=== PATIENT | female | born 1975 | race African-American/Black ===

== ENCOUNTER 2016-11-22 08:19 | Inpatient (IN) | payer OTHER ==
[2016-11-22 08:59] VITALS: BMI 35.4
--- NOTE | 2016-11-22 10:40 | HP ---
COWS - Scale Resting Pulse: 0= [place] 80 or Below Sweatin=Flushed/Facial Moisture Restless Observation: 1= Difficult to Sit Still Pupil Size: 0= Normal to Room Light Bone or Joint Aches: 1= Mild Discomfort Runny Nose/ Eye Tearin= Runny Nose/Eyes GI Upset > 30mins: 0= None Tremor Observation: 2= Slight Tremor Visible Yawning Observation: 1= 1-2x During Session Anxiety or Irritability: 2=Irritable/Anxious Goose Flesh Skin: 0=Smooth Skin COWS Score: 11 CIWA Score - CIWA Score Nausea/Vomitin-No Nausea/No Vomiting Muscle Tremors: 3 Anxiety: 3 Agitation: 3 Paroxysmal Sweats: 3 Orientation: 0-Oriented Tacttile Disturbances: 0-None Auditory Disturbances: 0-None Visual Disturbances: 0-None Headache: 2-Mild CIWA-Ar Total Score: 14 Admission [facility] Chief Complaint: I need to be here for help. Allergies/Adverse Reactions: Allergies Allergy/AdvReac Type Severity Reaction Status Date / Time quetiapine fumarate Allergy Intermediate Hives Verified 11/22/16 10:27 [From Seroquel] haloperidol AdvReac Intermediate Difficulty Verified 11/22/16 10:27 Breathing History of Present Illness: Pt is a 41yr old female with a history of alcohol and opioid dependence seeking detox for treatment. Last tx was at [facility] a year ago. Exam Limitations: No Limitations - Ebola screening Have you traveled outside of the country in the last 21 days: No Have you had contact with anyone from an Ebola affected area: No Have you been sick,other than usual withdrawal symptoms: No Do you have a fever: No - Review of Systems Constitutional: Chills, Diaphoresis, Loss of Appetite, Changes in sleep EENT: reports: No Symptoms Reported, Tearing Respiratory: reports: Cough, Productive cough (yellowish) Cardiac: reports: No Symptoms Reported GI: reports: Poor Appetite, Poor Fluid Intake, Indigestion : reports: Other (diffulty with voiding at times) Musculoskeletal: reports: Joint Pain Integumentary: reports: Flushing, Lesions (to left arm d/t mosquito bite and she was scratching causing her skin to open. no s/s of infection), Sweating Neuro: reports: Headache, Tingling, Tremors Endocrine: reports: Excessive Sweating, Flushing, Intolerance to Cold, Intolerance to Heat Hematology: reports: No Symptoms Reported Psychiatric: reports: Judgement Intact, Orientated x3, Agitated, Anxious Other Systems: Reviewed and Negative Patient History - Patient Medical History Hx Anemia: No Hx Asthma: No Hx Chronic Obstructive Pulmonary Disease (COPD): No Hx Cancer: No Hx Cardiac Disorders: Yes (cardiac arrest in 2011.) Hx Congestive Heart Failure: No Hx Hypertension: No Hx Hypercholesterolemia: No Hx Pacemaker: No HX Cerebrovascular Accident: No Hx Seizures: No Hx Dementia: No Hx Diabetes: No Hx Gastrointestinal Disorders: No Hx Liver Disease: No Hx Genitourinary Disorders: No Hx Sexually Transmitted Disorders: No Hx Renal Disease (ESRD): No Hx Thyroid Disease: No Hx Human Immunodeficiency Virus (HIV): No (negative) Hx Hepatitis C: No (negative) Hx Depression: No Hx Suicide Attempt: No (denies) Hx Bipolar Disorder: Yes ("they say I am") Hx Schizophrenia: No - Patient Surgical History Past Surgical History: Yes Hx Neurologic Surgery: No Hx Cataract Extraction: No Hx Cardiac Surgery: No Hx Lung Surgery: No Hx Breast Surgery: No Hx Breast Biopsy: No Hx Abdominal Surgery: No Hx Appendectomy: No Hx Cholecystectomy: No Hx Genitourinary Surgery: No Hx Section: No Hx Orthopedic Surgery: Yes (arthroscopic sx left 07/2016) Hx Hysterectomy: Yes Anesthesia Reaction: No - PPD History Previous Implant?: Yes Documented Results: Negative w/o proof PPD to be Administered?: Yes - Reproductive History Patient is a Female of Child Bearing Age (11 -55 yrs old): No Last Menstrual Period: 08/12/07 - Smoking Cessation Smoking history: Current every day smoker Have you smoked in the past 12 months: Yes Aproximately how many cigarettes per day: 10 Hx Chewing Tobacco Use: No Initiated information on smoking cessation: Yes 'Breaking Loose' booklet given: 11/22/16 - Substance & Tx. History Hx Alcohol Use: Yes Hx Substance Use: Yes Substance Use Type: Alcohol, Heroin - Substances Abused Heroin Route: Inhalation Frequency: Daily Amount used: 6 Age of first use: 35 Date of Last Use: 11/20/16 Family Disease History - Family Disease History Family Disease History: Heart Disease: Mother (lupus), Other: Father ( stroke), Mother, Sister (lupus) Admission Physical Exam BHS - Vital Signs Vital Signs: Vital Signs - 24 hr 11/22/16 08:52 Temperature 97.2 F L Pulse Rate 70 Respiratory 19 Rate Blood Pressure 131/93 - Physical General Appearance: Yes: Appropriately Dressed, Moderate Distress, Obese, Tremorous, Irritable, Sweating, Anxious HEENTM: Yes: Normal Voice, Nasal Congestion, Rhinorrhea Respiratory: Yes: Lungs Clear, Normal Breath Sounds, No Respiratory Distress Neck: Yes: No masses,lesions,Nodules Breast: Yes: Within Normal Limits Cardiology: Yes: Regular Rhythm, Regular Rate, S1, S2 Abdominal: Yes: Normal Bowel Sounds, Non Tender, Soft Genitourinary: Yes: Within Normal Limits Back: Yes: Normal Inspection Musculoskeletal: Yes: full range of Motion Extremities: Yes: Normal Inspection, Non-Tender, Tremors Neurological: Yes: Fully Oriented, Alert, Normal Response Integumentary: Yes: Normal Color Lymphatic: Yes: Within Normal Limits - Diagnostic (1) Opioid dependence with withdrawal Current Visit: Yes Status: Chronic (2) Alcohol dependence with uncomplicated withdrawal Current Visit: Yes Status: Chronic (3) Cannabis abuse Current Visit: Yes Status: Chronic (4) Nicotine dependence Current Visit: Yes Status: Chronic Qualifiers: Nicotine product type: cigarettes Substance use status: uncomplicated Qualified Code(s): F17.210 - Nicotine dependence, cigarettes, uncomplicated Cleared for Admission [facility] - Detox or Rehab [facility] Level of Care: Medically Managed Detox Regimen/Protocol: Methadone/Librium [facility] Breath Alcohol Content Breath Alcohol Content: 0 Urine Pregancy Test - Result Urine Test Results: Negative- NO Line Present Urine Drug Screen - Results Drug Screen Negative: No Urine Drug Screen Results: THC-Marijuana, CLAUS-Cocaine, OPI-Opiates, MTD- Methadone
[2016-11-22] MEDS ORDERED: MAGNESIUM CITRATE 300 ML BOTTLE PO PRN (11:03)
[2016-11-22] MEDS ORDERED: guaiFENesin/D-METHORPHAN HB 10 ML UNIT-DOSE CUPS PO PRN (11:03)
[2016-11-22] MEDS ORDERED: MENTHOL/PHENOL 1 EACH UD MM PRN (11:03)
[2016-11-22] MEDS ORDERED: MAGNESIUM HYDROX 2400MG/30ML ORAL SUSPENSION 30 ML CUP PO PRN (11:03)
[2016-11-22] MEDS ORDERED: ACETAMINOPHEN 325 MG TABLET (FP) PO PRN (11:03)
[2016-11-22] MEDS ORDERED: IBUPROFEN 400 MG TABLET (FP) PO PRN (11:03)
[2016-11-22] MEDS ORDERED: P-EPHED 60MG/TRIPROLIDI 2.5MG TABLET PO PRN (11:03)
[2016-11-22] MEDS ORDERED: LOPERAMIDE HCL 2 MG CAPSULE PO PRN (11:03)
[2016-11-22] MEDS ORDERED: NICOTINE POLACRILEX 4 MG GUM BC PRN (11:03)
[2016-11-22] MEDS ORDERED: chlordiazePOXIDE HCL 25 MG CAPSULE PO ONE (12:15)
[2016-11-22] MEDS ORDERED: METHADONE HCL 10 MG TABLET (FOR DETOX USE ONLY) PO ONE ×2 (12:15→23:00)
[2016-11-22] MEDS ORDERED: NICOTINE 21 MG/24 HOURS TOPICAL PATCH TD ONE (13:00)
[2016-11-22 14:38] LABS: URINE APPEARANCE SLCLOUDY; URINE BILIRUBIN NEGATIVE (NEGATIVE); URINE BLOOD NEGATIVE (NEGATIVE); URINE COLOR AMBER; URINE GLUCOSE (UA) NEGATIVE (NEGATIVE); URINE KETONE TRACE (NEGATIVE); URINE NITRITE NEGATIVE (NEGATIVE); URINE UROBILINOGEN NEGATIVE mg/dL (0.2-1.0)
--- NOTE | 2016-11-22 14:46 | CONSULT ---
[facility] Psychiatric Consult - Data Date of interview: 11/22/16 Admission source: [facility] Identifying data: This is 41 years old female with hisotry of Bipolar disordewr , history of psychiatric admissions, intoxicated with: Alcohol, Xanax, Cannabis and Nicotine Substance Abuse History: - Smoking Cessation. Smoking history: Current every day smoker. Have you smoked in the past 12 months: Yes. Aproximately how many cigarettes per day: 10. Hx Chewing Tobacco Use: No. Initiated information on smoking cessation: Yes. 'Breaking Loose' booklet given: 11/22/16. - Substance & Tx. History. Hx Alcohol Use: Yes. Hx Substance Use: Yes. Substance Use Type : Alcohol, Heroin. - Substances Abused. Heroin. Route: Inhalation. Frequency: Daily. Amount used: 6. Age of first use: 35. Date of Last Use: 03/29 Medical History: Patient reports history of Hysterectomy, denies any significant medical problem, reports allergy from Haldol, Seroquel Depakote and [place] Psychiatric History: Patient reports history of Bipolar disorder, reports most recent psychiatric admission on about 2-3 years ago at [facility], reports allergy on: Haldol, Sertoquel, [place], [place] Physical/Sexual Abuse/Trauma History: Unclear Additional Comment: Obsewrvation. Detox Unit Care Protocol Mental Status Exam - Mental Status Exam Alert and Oriented to: Person Cognitive Function: Fair Patient Appearance: Unkempt Mood: Suspicious, Anxious Affect: Constricted Patient Behavior: Talkative Speech Pattern: Excessive Voice Loudness: Mildly Loud Thought Process: Circumstantial Thought Disorder: Being Controlled Hallucinations: Denies Suicidal Ideation: Denies Homicidal Ideation: Denies Insight/Judgement: Fair Sleep: Difficulty falling asleep Appetite: Weight gain Muscle strength/Tone: Mild Hypotonicity Gait/Station: Shuffling Additional Comments: Obsewrvation. Detox Unit Care Protocol Psychiatric Findings - Problem List ([place] 1, 2,3) (1) Alcohol dependence with uncomplicated withdrawal Current Visit: Yes Status: Chronic (2) Cannabis abuse Current Visit: Yes Status: Chronic (3) Nicotine dependence Current Visit: Yes Status: Chronic Qualifiers: Nicotine product type: cigarettes Substance use status: uncomplicated Qualified Code(s): F17.210 - Nicotine dependence, cigarettes, uncomplicated (4) Opioid dependence with withdrawal Current Visit: Yes Status: Chronic (5) Bipolar 1 disorder Current Visit: Yes Status: Suspected (6) Drug-induced mood disorder Current Visit: Yes Status: Acute - Initial Treatment Plan Initial Treatment Plan: Obsewrvation. Detox Unit Care Protocol
[2016-11-22 14:51] LABS: URINE LEUK ESTERASE 1+ (NEGATIVE); URINE PROTEIN 1+ (NEGATIVE)
[2016-11-22 14:54] LABS: URINE MUCUS FEW; URINE RBC 11 /hpf (0-3); URINE WBC 4 /hpf (3-5)
[2016-11-22 15:40] LABS: HIV 1 & 2 AB NEGATIVE; HIV 1 AGp24 NEGATIVE
--- NOTE | 2016-11-22 16:06 | EKG ---
Test Reason : Blood Pressure : / mmHG Vent. Rate : 056 BPM Atrial Rate : 056 BPM P-R Int : 164 ms QRS Dur : 108 ms QT Int : 426 ms P-R-T Axes : 054 016 027 degrees QTc Int : 411 ms SINUS BRADYCARDIA CANNOT RULE OUT ANTERIOR INFARCT , AGE UNDETERMINED ABNORMAL ECG NO PREVIOUS ECGS AVAILABLE Confirmed by EMELIA LEACH MD ([id number]) on 11/22/2016 4:06:26 PM Referred By: Confirmed By:EMELIA LEACH MD
[2016-11-22] MEDS: chlordiazePOXIDE HCL 25 MG CAPSULE PO SCH ×2 (17:05→22:19)
[2016-11-22] MEDS: THIAMINE HCL 100 MG TABLET (FP) PO SCH (22:19)
[2016-11-22] MEDS: diphenhydrAMINE HCL 50 MG CAPSULE PO PRN (22:20)
[2016-11-23] MEDS: chlordiazePOXIDE HCL 25 MG CAPSULE PO SCH ×4 (05:54→22:01)
[2016-11-23] MEDS ORDERED: METHADONE HCL 10 MG TABLET (FOR DETOX USE ONLY) PO SCH (10:00)
[2016-11-23 10:02] LABS: MCHC 33.6 g/dl (32.0-36.0); MEAN CELL VOLUME 92.2 fl (80-96); MEAN PLT VOLUME 9.3 fl (7.5-11.1); PLATELET COUNT 235 K/MM3 (134-434); RDW 14.4 % (11.6-15.6); WHITE BLOOD COUNT 5.2 K/mm3 (4.0-10.0)
[2016-11-23 10:14] LABS: ALBUMIN 4.3 g/dl (3.4-5.0); ANION GAP 6 (8-16); CALCIUM 9.9 mg/dL (8.5-10.1); CO2 29 mmol/L (21-32); GLUCOSE,RANDOM 81 mg/dL (74-106)
[2016-11-23 10:17] LABS: ALK PHOS 107 U/L (45-117); BILIRUBIN,TOTAL 0.6 mg/dL (0.2-1.0); CREATININE 1.2 mg/dL (0.55-1.02); SGOT/AST 23 U/L (15-37); SGPT/ALT 24 U/L (12-78); TOT PROT 8.2 g/dl (6.4-8.2)
--- NOTE | 2016-11-23 10:25 | PN ---
[facility] CIWA - CIWA Score Nausea/Vomitin-No Nausea/No Vomiting Muscle Tremors: 4-Moderate,w/Arms Extend Anxiety: 4-Mod. Anxious/Guarded Agitation: 4-Moderately Restless Paroxysmal Sweats: 1-Minimal Palms Moist Orientation: 0-Oriented Tacttile Disturbances: 3-Moderate Itch/Numb/Burn Auditory Disturbances: 0-None Visual Disturbances: 0-None Headache: 0-None Present CIWA-Ar Total Score: 16 S COWS - Scale Resting Pulse: 0= [place] 80 or Below Sweatin= Chills/Flushing Restless Observation: 3= Extraneous Movement Pupil Size: 2= Moderately Dilated Bone or Joint Aches: 2= Severe Diffuse Aches Runny Nose/ Eye Tearin= Nasal Congestion GI Upset > 30mins: 0= None Tremor Observation of Outstretched Hands: 2= Slight Tremor Visible Yawning Observation: 1= 1-2x During Session Anxiety or Irritability: 2=Irritable/Anxious Goose Flesh Skin: 0=Smooth Skin COWS Score: 14 S Progress Note (SOAP) Subjective: SLIGHT IRRITABILITY,TREMOR,FATIGUE. Objective: 11/23/16 10:24 Vital Signs Temperature 98.1 F 11/23/16 06:22 Pulse Rate 58 L 11/23/16 06:22 Respiratory Rate 16 11/23/16 06:22 Blood Pressure 101/54 11/23/16 06:22 O2 Sat by Pulse Oximetry (%) Laboratory Last Values WBC 5.2 K/mm3 (4.0-10.0) 11/23/16 06:00 RBC 5.01 M/mm3 (3.60-5.2) 11/23/16 06:00 Hgb 15.5 GM/dL (10.7-15.3) H D 11/23/16 06:00 Hct 46.2 % (32.4-45.2) H 11/23/16 06:00 MCV 92.2 fl (80-96) 11/23/16 06:00 MCH 31.0 pg (25.7-33.7) 11/23/16 06:00 MCHC 33.6 g/dl (32.0-36.0) 11/23/16 06:00 RDW 14.4 % (11.6-15.6) 11/23/16 06:00 Plt Count 235 K/MM3 (134-434) D 11/23/16 06:00 MPV 9.3 fl (7.5-11.1) D 11/23/16 06:00 Urine Color [place] 11/22/16 12:53 Urine Appearance Slcloudy 11/22/16 12:53 Urine pH 5.0 (5.0-8.0) 11/22/16 12:53 Ur Specific [place] > 1.030 (1.005-1.025) H 11/22/16 12:53 Urine Protein 1+ (NEGATIVE) H 11/22/16 12:53 Urine Glucose (UA) Negative (NEGATIVE) 11/22/16 12:53 Urine Ketones Trace (NEGATIVE) H 11/22/16 12:53 Urine Blood Negative (NEGATIVE) 11/22/16 12:53 Urine Nitrite Negative (NEGATIVE) 11/22/16 12:53 Urine Bilirubin Negative (NEGATIVE) 11/22/16 12:53 Urine Urobilinogen Negative mg/dL (0.2-1.0) 11/22/16 12:53 Ur Leukocyte Esterase 1+ (NEGATIVE) H 11/22/16 12:53 Urine RBC 11 /hpf (0-3) 11/22/16 12:53 Urine WBC 4 /hpf (3-5) 11/22/16 12:53 Ur Epithelial Cells Many /hpf (FEW) 11/22/16 12:53 Urine Mucus Few 11/22/16 12:53 HIV 1&2 Antibody Screen Negative 11/22/16 11:40 HIV P24 Antigen Negative 11/22/16 11:40 LABS NOTED/UA NOTED Assessment: 11/23/16 10:25 WITHDRAWAL SX Plan: CONTINUE DETOX REPEAT UA TODAY.
[2016-11-23] MEDS: PRENATAL VITAMINS W/ FOLIC ACID TABLET (FP) PO SCH (10:41)
[2016-11-23] MEDS: NICOTINE 21 MG/24 HOURS TOPICAL PATCH TD SCH (10:43)
[2016-11-23] MEDS: chlordiazePOXIDE HCL 25 MG CAPSULE PO PRN (20:07)
[2016-11-23] MEDS: MAG HYDROX/AL HYDROX/SIMETH 30 ML UNIT-DOSE CUP PO PRN (21:51)
[2016-11-23] MEDS: THIAMINE HCL 100 MG TABLET (FP) PO SCH (21:51)
[2016-11-23] MEDS: diphenhydrAMINE HCL 50 MG CAPSULE PO PRN (21:52)
[2016-11-24] MEDS: chlordiazePOXIDE HCL 25 MG CAPSULE PO PRN ×3 (01:59→20:23)
[2016-11-24] MEDS: chlordiazePOXIDE HCL 25 MG CAPSULE PO SCH ×2 (05:53→10:03)
[2016-11-24] MEDS: NICOTINE 21 MG/24 HOURS TOPICAL PATCH TD SCH (10:03)
[2016-11-24] MEDS: PRENATAL VITAMINS W/ FOLIC ACID TABLET (FP) PO SCH (10:03)
[2016-11-24] MEDS: METHADONE HCL 5 MG TABLET (FOR DETOX USE ONLY) PO SCH (10:03)
[2016-11-24 10:28] LABS: URINE APPEARANCE SLCLOUDY; URINE BILIRUBIN NEGATIVE (NEGATIVE); URINE BLOOD NEGATIVE (NEGATIVE); URINE COLOR YELLOW; URINE GLUCOSE (UA) NEGATIVE (NEGATIVE); URINE KETONE NEGATIVE (NEGATIVE); URINE NITRITE NEGATIVE (NEGATIVE); URINE PROTEIN NEGATIVE (NEGATIVE)
[2016-11-24 10:47] LABS: URINE LEUK ESTERASE 1+ (NEGATIVE)
[2016-11-24 11:11] LABS: URINE MUCUS RARE; URINE RBC 3 /hpf (0-3); URINE WBC 3 /hpf (3-5)
--- NOTE | 2016-11-24 15:15 | PN ---
S CIWA - CIWA Score Nausea/Vomitin Muscle Tremors: 2 Anxiety: 2 Agitation: 2 Paroxysmal Sweats: 2 Orientation: 0-Oriented Tacttile Disturbances: 2-Mild Itch/Numbness/Burn Auditory Disturbances: 0-None Visual Disturbances: 0-None Headache: 2-Mild CIWA-Ar Total Score: 14 BHS COWS - Scale Resting Pulse: 0= [place] 80 or Below Sweatin= Chills/Flushing Restless Observation: 1= Difficult to Sit Still Pupil Size: 0= Normal to Room Light Bone or Joint Aches: 2= Severe Diffuse Aches Runny Nose/ Eye Tearin= Nasal Congestion GI Upset > 30mins: 2= Nausea/Diarrhea Tremor Observation of Outstretched Hands: 2= Slight Tremor Visible Yawning Observation: 1= 1-2x During Session Anxiety or Irritability: 2=Irritable/Anxious Goose Flesh Skin: 0=Smooth Skin COWS Score: 12 S Progress Note (SOAP) Subjective: shakes, sweats, body aches and abdominal cramps Objective: 11/24/16 15:14 Vital Signs 11/24/16 11/24/16 09:09 13:34 Temperature 96.5 F L 96.8 F L Pulse Rate 83 81 Respiratory 18 18 Rate Blood Pressure 113/81 113/80 Laboratory Last Values WBC 5.2 K/mm3 (4.0-10.0) 11/23/16 06:00 RBC 5.01 M/mm3 (3.60-5.2) 11/23/16 06:00 Hgb 15.5 GM/dL (10.7-15.3) H D 11/23/16 06:00 Hct 46.2 % (32.4-45.2) H 11/23/16 06:00 MCV 92.2 fl (80-96) 11/23/16 06:00 MCH 31.0 pg (25.7-33.7) 11/23/16 06:00 MCHC 33.6 g/dl (32.0-36.0) 11/23/16 06:00 RDW 14.4 % (11.6-15.6) 11/23/16 06:00 Plt Count 235 K/MM3 (134-434) D 11/23/16 06:00 MPV 9.3 fl (7.5-11.1) D 11/23/16 06:00 Sodium 136 mmol/L (136-145) 11/23/16 06:00 Potassium 4.1 mmol/L (3.5-5.1) 11/23/16 06:00 Chloride 101 mmol/L (98-107) 11/23/16 06:00 Carbon Dioxide 29 mmol/L (21-32) 11/23/16 06:00 Anion Gap 6 (8-16) L 11/23/16 06:00 BUN 15 mg/dL (7-18) 11/23/16 06:00 Creatinine 1.2 mg/dL (0.55-1.02) H D 11/23/16 06:00 Creat Clearance w eGFR 49.03 (>60) 11/23/16 06:00 Random Glucose 81 mg/dL (74-106) 11/23/16 06:00 Calcium 9.9 mg/dL (8.5-10.1) 11/23/16 06:00 Total Bilirubin 0.6 mg/dL (0.2-1.0) D 11/23/16 06:00 AST 23 U/L (15-37) D 11/23/16 06:00 ALT 24 U/L (12-78) 11/23/16 06:00 Alkaline Phosphatase 107 U/L (45-117) D 11/23/16 06:00 Total Protein 8.2 g/dl (6.4-8.2) D 11/23/16 06:00 Albumin 4.3 g/dl (3.4-5.0) D 11/23/16 06:00 Urine Color Yellow 11/24/16 07:20 Urine Appearance Slcloudy 11/24/16 07:20 Urine pH 6.0 (5.0-8.0) 11/24/16 07:20 Ur Specific [place] 1.020 (1.005-1.025) 11/24/16 07:20 Urine Protein Negative (NEGATIVE) 11/24/16 07:20 Urine Glucose (UA) Negative (NEGATIVE) 11/24/16 07:20 Urine Ketones Negative (NEGATIVE) 11/24/16 07:20 Urine Blood Negative (NEGATIVE) 11/24/16 07:20 Urine Nitrite Negative (NEGATIVE) 11/24/16 07:20 Urine Bilirubin Negative (NEGATIVE) 11/24/16 07:20 Urine Urobilinogen 2.0 mg/dL (0.2-1.0) H 11/24/16 07:20 Ur Leukocyte Esterase 1+ (NEGATIVE) H 11/24/16 07:20 Urine RBC 3 /hpf (0-3) 11/24/16 07:20 Urine WBC 3 /hpf (3-5) 11/24/16 07:20 Ur Epithelial Cells Many /hpf (FEW) 11/24/16 07:20 Urine Mucus Rare 11/24/16 07:20 RPR Titer Nonreactive (NONREACTIVE) 11/23/16 06:00 HIV 1&2 Antibody Screen Negative 11/22/16 11:40 HIV P24 Antigen Negative 11/22/16 11:40 Labs noted UA repeated, 1 + leukocyte esterase, many epithelial cells denies urinary symptoms, treatment not indicated Assessment: 11/24/16 15:15 withdrawal sx Plan: continue detox
[2016-11-24] MEDS: MAG HYDROX/AL HYDROX/SIMETH 30 ML UNIT-DOSE CUP PO PRN (15:27)
[2016-11-24] MEDS: chlordiazePOXIDE 5 MG CAPSULE PO SCH ×2 (17:04→22:09)
[2016-11-24] MEDS: diphenhydrAMINE HCL 50 MG CAPSULE PO PRN (22:09)
[2016-11-24] MEDS: THIAMINE HCL 100 MG TABLET (FP) PO SCH (22:09)
[2016-11-25] MEDS: chlordiazePOXIDE 5 MG CAPSULE PO SCH ×2 (06:05→10:02)
[2016-11-25] MEDS: METHADONE HCL 5 MG TABLET (FOR DETOX USE ONLY) PO SCH (10:02)
[2016-11-25] MEDS: NICOTINE 21 MG/24 HOURS TOPICAL PATCH TD SCH (10:02)
[2016-11-25] MEDS: PRENATAL VITAMINS W/ FOLIC ACID TABLET (FP) PO SCH (10:02)
--- NOTE | 2016-11-25 14:01 | PN ---
S Progress Note (SOAP) Subjective: Anxious, sweating, interrupted sleep, constipation (had hard stool last night). Patient reported that she fell in the dining room at lunchtime hitting her right elbow and right knee. As per patient, there was melted ice on the floor which caused her to fall. She denies sob, chest pain, abdominal pain and reports pain scale of 5/10 to right elbow and 7/10 to right knee. She denies any problem with ambulation. Patient made aware that she will be sent to [facility] for xray of right knee and right elbow but she refused. As per patient , she will have xray done here tomorrow. Objective: 11/25/16 14:03 PE: Skin: warm to touch, turgor good, moist Extrem: right elbow with FROM, no swelling/redness/bruising, skin intact; right knee: mild swelling, FROM, no redness/bruising, skin intact Gait: steady Last Vital Signs Temp Pulse Resp BP Pulse Ox 98.1 F 74 16 114/81 11/25/16 14:03 11/25/16 14:03 11/25/16 14:03 11/25/16 14:03 Laboratory Tests 11/22/16 11/22/16 11/23/16 11:40 12:53 06:00 WBC 5.2 RBC 5.01 Hgb 15.5 H D Hct 46.2 H MCV 92.2 MCH 31.0 MCHC 33.6 RDW 14.4 Plt Count 235 D MPV 9.3 D Sodium Potassium Chloride Carbon Dioxide Anion Gap BUN Creatinine Creat Clearance w eGFR Random Glucose Calcium Total Bilirubin AST ALT Alkaline Phosphatase Total Protein Albumin Urine Color [place] Urine Appearance Slcloudy Urine pH 5.0 Ur Specific [place] > 1.030 H Urine Protein 1+ H Urine Glucose (UA) Negative Urine Ketones Trace H Urine Blood Negative Urine Nitrite Negative Urine Bilirubin Negative Urine Urobilinogen Negative Ur Leukocyte Esterase 1+ H Urine RBC 11 Urine WBC 4 Ur Epithelial Cells Many Urine Mucus Few RPR Titer HIV 1&2 Antibody Screen Negative HIV P24 Antigen Negative 11/23/16 11/23/16 11/24/16 06:00 06:00 07:20 WBC RBC Hgb Hct MCV MCH MCHC RDW Plt Count MPV Sodium 136 Potassium 4.1 Chloride 101 Carbon Dioxide 29 Anion Gap 6 L BUN 15 Creatinine 1.2 H D Creat Clearance w eGFR 49.03 Random Glucose 81 Calcium 9.9 Total Bilirubin 0.6 D AST 23 D ALT 24 Alkaline Phosphatase 107 D Total Protein 8.2 D Albumin 4.3 D Urine Color Yellow Urine Appearance Slcloudy Urine pH 6.0 Ur Specific [place] 1.020 Urine Protein Negative Urine Glucose (UA) Negative Urine Ketones Negative Urine Blood Negative Urine Nitrite Negative Urine Bilirubin Negative Urine Urobilinogen 2.0 H Ur Leukocyte Esterase 1+ H Urine RBC 3 Urine WBC 3 Ur Epithelial Cells Many Urine Mucus Rare RPR Titer Nonreactive HIV 1&2 Antibody Screen HIV P24 Antigen Labs noted c/o constipation Assessment: 11/25/16 14:06 Withdrawal symptoms c/o constipation s/p fall Plan: Continue detox Acute constipation: dulcolax 10mg PO x 1 dose, encouraged to drink lots of water , continue to monitor Fell and hurt right elbow and right knee: ice pack prn, motrin prn pain, [facility] (patient refused, she wants to have it done tomorrow here at this sight). Xrays reordered for tomorrow. Fall protocol #2 placed.
[2016-11-25] MEDS ORDERED: BISACODYL 5 MG TABLET.DR (FP) PO ONE (14:30)
[2016-11-25] MEDS: hydrOXYzine PAMOATE 50 MG CAPSULE (FP) PO PRN ×2 (14:45→22:08)
[2016-11-25] MEDS: MAG HYDROX/AL HYDROX/SIMETH 30 ML UNIT-DOSE CUP PO PRN (15:31)
[2016-11-25] MEDS: chlordiazePOXIDE HCL 10 MG CAPSULE PO SCH ×2 (17:28→22:08)
[2016-11-25] MEDS: diphenhydrAMINE HCL 50 MG CAPSULE PO PRN (22:08)
[2016-11-25] MEDS: THIAMINE HCL 100 MG TABLET (FP) PO SCH (22:08)
[2016-11-26] MEDS: diphenhydrAMINE HCL 50 MG CAPSULE PO PRN (01:49)
[2016-11-26] MEDS: chlordiazePOXIDE HCL 10 MG CAPSULE PO SCH ×2 (05:37→10:21)
[2016-11-26] MEDS: hydrOXYzine PAMOATE 50 MG CAPSULE (FP) PO PRN ×3 (05:37→22:20)
[2016-11-26] MEDS ORDERED: METHADONE HCL 10 MG TABLET (FOR DETOX USE ONLY) PO SCH (10:00)
[2016-11-26] MEDS: NICOTINE 21 MG/24 HOURS TOPICAL PATCH TD SCH (10:22)
[2016-11-26] MEDS: PRENATAL VITAMINS W/ FOLIC ACID TABLET (FP) PO SCH (10:22)
--- NOTE | 2016-11-26 11:59 | PN ---
BHS Progress Note (SOAP) Subjective: DETOX PROCEEDING SCHEDULED. OOB EATING STANDING IN DAYROOM. ALERT O X 3. DENIES ACUTE DISTRESS. PT DECLINED TO GO FOR XRAY ELBOW/KNEE ORDER IN PREVIOUS DAY DUE TO AN APPARENT ACCIDENTAL FALL. ASKED PT WHY SHE IS REFUSING AND SHE STATED 'I JUST DON'T WANNA GO THROUGH WITH IT". ALL EFFORT TO ENCOURAGE PT TO GO FAILED. Objective: 11/26/16 11:53 Vital Signs Temperature 97.5 F L 11/26/16 10:04 Pulse Rate 76 11/26/16 10:04 Respiratory Rate 18 11/26/16 10:04 Blood Pressure 83/55 11/26/16 10:04 O2 Sat by Pulse Oximetry (%) Assessment: 11/26/16 11:54 WITHDRAWAL SX Plan: CONTINUE DETOX INCREASE PO FLUIDS
[2016-11-26] MEDS: THIAMINE HCL 100 MG TABLET (FP) PO SCH (22:18)
[2016-11-26 23:13] LABS: URINE APPEARANCE CLOUDY; URINE BILIRUBIN NEGATIVE (NEGATIVE); URINE BLOOD NEGATIVE (NEGATIVE); URINE COLOR YELLOW; URINE GLUCOSE (UA) NEGATIVE (NEGATIVE); URINE KETONE NEGATIVE (NEGATIVE); URINE NITRITE NEGATIVE (NEGATIVE); URINE PROTEIN NEGATIVE (NEGATIVE); URINE UROBILINOGEN NEGATIVE mg/dL (0.2-1.0)
[2016-11-26 23:14] LABS: URINE LEUK ESTERASE TRACE (NEGATIVE)
[2016-11-26 23:22] LABS: URINE MUCUS RARE; URINE RBC 2 /hpf (0-3); URINE WBC 2 /hpf (3-5)
[2016-11-27] MEDS: hydrOXYzine PAMOATE 50 MG CAPSULE (FP) PO PRN ×2 (03:20→09:17)
[2016-11-27] MEDS ORDERED: METHADONE HCL 5 MG TABLET (FOR DETOX USE ONLY) PO SCH (06:00)
[2016-11-27 06:21] VITALS: BP 113/81; PULSE 81; TEMP 98.4
[2016-11-27] MEDS: NICOTINE 21 MG/24 HOURS TOPICAL PATCH TD SCH (09:16)
[2016-11-27] MEDS: PRENATAL VITAMINS W/ FOLIC ACID TABLET (FP) PO SCH (09:16)
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
== END 2016-11-27 09:32 | disposition home or self-care (01) | DRG 773 ==
LOC: YASAS 08:19 → Y3N 11:29
PROVIDERS: ADMIT Internal Medicine; ATTEND Internal Medicine
PROC: HZ2ZZZZ Detoxification Services for Substance Abuse Treatment (ICD-10-PCS; principal; 2016-11-27)
DX: F11.23 Opioid dependence with withdrawal (principal); F10.230 Alcohol dependence with withdrawal, uncomplicated; F17.210 Nicotine dependence, cigarettes, uncomplicated; F12.10 Cannabis abuse, uncomplicated; F19.24 Other psychoactive substance dependence with psychoactive substance-induced mood disorder; F31.89 Other bipolar disorder; Z86.74 Personal history of sudden cardiac arrest
CPT/HCPCS: 36415; 80053; 81003; 81015; 85027; 86593; 87389; 93005; 93010

== ENCOUNTER 2020-10-25 16:18 | Emergency (ER) | payer OTHER ==
[2020-10-25 17:30] VITALS: TEMP 99.1; BMI 31.3
[2020-10-25 18:12] LABS: BASO % 0.4 % (0-2.0); EOS % 2.2 % (0-4.5); HEMATOCRIT 35.3 % (32.4-45.2); HEMOGLOBIN 11.8 GM/dL (10.7-15.3); LYMPH % 40.9 % (8-40); MCH 30.4 pg (25.7-33.7); MCHC 33.4 g/dl (32.0-36.0); MEAN CELL VOLUME 91.1 fl (80-96); MONO % 10.8 % (3.8-10.2); NEUT % 45.7 % (42.8-82.8); PLATELET COUNT 259 10^3/uL (134-434); RBC 3.87 M/mm3 (3.60-5.2); RDW 15.2 % (11.6-15.6); WHITE BLOOD COUNT 5.6 K/mm3 (4.0-10.0)
[2020-10-25 18:30] LABS: CHLORIDE 103 mmol/L (98-107); SODIUM 139 mmol/L (136-145)
[2020-10-25 18:32] LABS: CALCIUM 9.2 mg/dL (8.5-10.1)
[2020-10-25 18:33] LABS: ALBUMIN 3.5 g/dl (3.4-5.0); ANION GAP 5 MMOL/L (8-16); BLOOD UREA NITROGEN 22.9 mg/dL (7-18); CO2 32 mmol/L (21-32); GLUCOSE,RANDOM 93 mg/dL (74-106)
[2020-10-25 18:36] LABS: CREATININE 1.2 mg/dL (0.55-1.3); SGOT/AST 9 U/L (15-37); SGPT/ALT 12 U/L (13-61)
[2020-10-25 18:38] LABS: BILIRUBIN,TOTAL 0.6 mg/dL (0.2-1); TOT PROT 7.4 g/dl (6.4-8.2)
[2020-10-25 18:39] LABS: ALK PHOS 78 U/L (45-117)
[2020-10-25] MEDS ORDERED: DEXAMETHASONE SOD PHOSPHATE 10 MG/1 ML VIAL IVPUSH ONE (19:34)
[2020-10-25] MEDS ORDERED: DEXAMETHASONE SOD PHOSPHATE 10 MG/1 ML VIAL ONE (19:51)
[2020-10-25 21:21] VITALS: PULSE 85
[2020-10-25 22:24] VITALS: BP 129/89
== END 2020-10-25 22:24 | disposition short-term general hospital (02) ==
LOC: JER 16:18
PROC: 3E033GC Introduction of Other Therapeutic Substance into Peripheral Vein, Percutaneous Approach (ICD-10-PCS; principal; 2020-10-25)
DX: R06.1 Stridor (principal)
CPT/HCPCS: 36415; 70491-TC; 71260-TC; 80053; 82550; 84484; 85025; 93005; 93010; 99285-25; C9803; J1100; Q9967; U0003; U0005

== ENCOUNTER 2021-11-22 06:49 | Inpatient (IN) | payer OTHER ==
[2021-11-22] MEDS ORDERED: ALBUTEROL SO4 2.5/IPRATROPIUM 0.5 INH SOL 3 ML VIAL.NEB. NEB ONE ×2 (08:10→08:20)
[2021-11-22] MEDS ORDERED: DEXAMETHASONE SOD PHOSPHATE 10 MG/1 ML VIAL IVPUSH ONE (08:11)
[2021-11-22] MEDS ORDERED: ACETAMINOPHEN 1000 MG/100 ML BAG IVPB ONE (08:11)
[2021-11-22 08:13] VITALS: BMI 31.3
[2021-11-22] MEDS ORDERED: AZITHROMYCIN IVPB 500 MG in DEXTROSE 5%-WATER - 250 ML IVPB ONE (08:13)
[2021-11-22] MEDS ORDERED: CEFTRIAXONE 1,000 MG in DEXTROSE 5%-WATER - 50 ML IVPB ONE (08:13)
[2021-11-22] MEDS ORDERED: ACETAMINOPHEN INJECTION 100 ML IVPB ONE (08:20)
[2021-11-22] MEDS ORDERED: DEXAMETHASONE SOD PHOSPHATE 10 MG/1 ML VIAL ONE (08:20)
[2021-11-22] MEDS ORDERED: AZITHROMYCIN IVPB 500 MG/250 ML BAG IVPB ONE (08:21)
[2021-11-22] MEDS ORDERED: CEFTRIAXONE 1 GM/50 ML BAG ONE (08:21)
[2021-11-22 08:49] VITALS: TEMP 98.8
[2021-11-22 09:25] LABS: VENOUS BASE EXCESS -0.4 mmol/L (-2-2); VENOUS O2 SATURATION 78.8 % (70-80); VENOUS PCO2 42.8 mmHg (38-52); VENOUS PH 7.381 (7.310-7.410)
[2021-11-22 09:37] LABS: HEMATOCRIT 30.4 % (32.4-45.2); HEMOGLOBIN 10.2 GM/dL (10.7-15.3); LYMPH % 26.3 % (8-40); MCH 27.2 pg (25.7-33.7); MCHC 33.5 g/dl (32.0-36.0); MEAN CELL VOLUME 80.9 fl (80-96); MEAN PLT VOLUME 8.2 fl (7.5-11.1); MONO % 6.8 % (3.8-10.2); NEUT % 64.9 % (42.8-82.8); PLATELET COUNT 343 10^3/uL (134-434); RBC 3.76 M/mm3 (3.60-5.2); RDW 14.6 % (11.6-15.6); WHITE BLOOD COUNT 6.5 K/mm3 (4.0-10.0)
[2021-11-22 09:48] LABS: INR 1.11 (0.83-1.09); PROTHROMBIN TIME (PATIENT) 12.8 SEC (9.7-13.0)
[2021-11-22 09:51] LABS: ACTIVATED PTT 30.6 SECONDS (25.2-36.5)
[2021-11-22 09:58] LABS: CALCIUM 9.3 mg/dL (8.5-10.1)
[2021-11-22 09:59] LABS: ALBUMIN 3.1 g/dl (3.4-5.0); BLOOD UREA NITROGEN 15.4 mg/dL (7-18)
[2021-11-22 10:00] LABS: CREATININE 0.5 mg/dL (0.55-1.3)
[2021-11-22 10:03] LABS: BILIRUBIN,TOTAL 0.5 mg/dL (0.2-1)
[2021-11-22 12:45] LABS: N-TERMINAL BNP 2749.9 pg/ml (5-125)
[2021-11-22] MEDS ORDERED: AZITHROMYCIN 250 MG TABLET PO ONE (18:20)
[2021-11-22] MEDS ORDERED: CEFTRIAXONE 1 MG in DEXTROSE 5%-WATER - 50 ML IVPB ONE (18:20)
[2021-11-22] MEDS ORDERED: ALBUTEROL SO4 2.5/IPRATROPIUM 0.5 INH SOL 3 ML VIAL.NEB. NEB PRN (18:20)
[2021-11-22] MEDS ORDERED: ACETAMINOPHEN 325 MG TABLET (FP) PO PRN (18:20)
[2021-11-22] MEDS ORDERED: FUROSEMIDE 40 MG/4 ML INJECTABLE VIAL IVPUSH SCH (18:30)
[2021-11-22] MEDS ORDERED: PANTOPRAZOLE 40 MG TABLET PO SCH (18:30)
[2021-11-22] MEDS ORDERED: metoPROLOL SUCCINATE 25 MG TAB.SR.24H (FP) PO SCH (18:30)
[2021-11-22] MEDS ORDERED: CEFTRIAXONE 1 GM in DEXTROSE 5%-WATER - 50 ML IVPB ONE (18:42)
[2021-11-22] MEDS ORDERED: FUROSEMIDE 40 MG/4 ML INJECTABLE VIAL ONE (18:49)
[2021-11-22] MEDS ORDERED: metoPROLOL SUCCINATE 25 MG TAB.SR.24H (FP) PO ONE (18:49)
[2021-11-22] MEDS ORDERED: PANTOPRAZOLE 40 MG TABLET PO ONE (18:49)
[2021-11-22] MEDS ORDERED: HEPARIN NA (PORCINE) 5,000 UNITS/ML 1ML VIAL SQ SCH (22:00)
[2021-11-23] MEDS ORDERED: methylPREDNISolone NA SUCC 40 MG/1 ML VIAL IVPUSH SCH ×2 (02:00→09:00)
[2021-11-23 02:19] VITALS: BP 147/104; PULSE 92
[2021-11-23 07:37] LABS: HEMATOCRIT 29.3 % (32.4-45.2); HEMOGLOBIN 9.6 GM/dL (10.7-15.3); MCH 26.7 pg (25.7-33.7); MEAN CELL VOLUME 80.9 fl (80-96); PLATELET COUNT 322 10^3/uL (134-434); RBC 3.62 M/mm3 (3.60-5.2); RDW 14.7 % (11.6-15.6); WHITE BLOOD COUNT 11.4 K/mm3 (4.0-10.0)
[2021-11-23 08:03] LABS: BLOOD UREA NITROGEN 23.4 mg/dL (7-18); CALCIUM 9.1 mg/dL (8.5-10.1)
[2021-11-23 08:06] LABS: CREATININE 0.7 mg/dL (0.55-1.3)
[2021-11-23 08:08] LABS: BILIRUBIN,TOTAL 0.4 mg/dL (0.2-1); TOT PROT 6.7 g/dl (6.4-8.2)
[2021-11-23] MEDS ORDERED: ASPIRIN 81 MG CHEWABLE TABLETS PO SCH (10:00)
[2021-11-23] MEDS ORDERED: CEFTRIAXONE 1 GM in DEXTROSE 5%-WATER - 50 ML IVPB SCH (10:00)
[2021-11-23] MEDS ORDERED: AZITHROMYCIN 250 MG TABLET PO SCH (10:00)
[2021-11-23] MEDS ORDERED: PIPERACILLIN/TAZOB 4.5 GM 4.5 GM/100 ML BAG IVPB ONE (11:08)
[2021-11-23] MEDS ORDERED: ALBUTEROL SO4 2.5/IPRATROPIUM 0.5 INH SOL 3 ML VIAL.NEB. NEB SCH (12:00)
[2021-11-23] MEDS ORDERED: SACUBITRIL/VALSARTAN 24 MG-26 MG TABLET PO SCH (14:00)
[2021-11-23] MEDS ORDERED: ATORVASTATIN CA 80 MG TABLET (FP) PO SCH (22:00)
== END 2021-11-23 14:00 | disposition left against medical advice (07) | DRG 194 ==
LOC: JER 06:49 → JERBED 12:19
PROVIDERS: ADMIT Family Medicine; ATTEND Internal Medicine
DX: I50.21 Acute systolic (congestive) heart failure (principal); J18.9 Pneumonia, unspecified organism; I24.8 Other forms of acute ischemic heart disease; F31.89 Other bipolar disorder; F17.200 Nicotine dependence, unspecified, uncomplicated; F19.10 Other psychoactive substance abuse, uncomplicated; R41.3 Other amnesia; Z86.73 Personal history of transient ischemic attack (TIA), and cerebral infarction without residual deficits
CPT/HCPCS: 0241U-QW; 36415; 71045-TC-FY; 80053; 80061; 82550; 82553; 82803; 83036; 83605; 83690; 83880; 84484; 85025; 85027; 85610; 85730; 87040; 93005; 93010; 93306-TC; 99285-25; J1100

== ENCOUNTER 2022-08-10 07:52 | Inpatient (IN) | payer OTHER ==
[2022-08-10 08:36] VITALS: BMI 28.5
[2022-08-10 09:32] LABS: CALCIUM 9.8 mg/dL (8.5-10.1)
[2022-08-10 09:33] LABS: ALBUMIN 3.3 g/dl (3.4-5.0); BLOOD UREA NITROGEN 12.8 mg/dL (7-18); MAGNESIUM 1.7 mg/dL (1.8-2.4)
[2022-08-10] MEDS ORDERED: MAGNESIUM SULF 50% (8.12 MEQ/2 ML-1 GM VIAL) IVPB ONE (09:34)
[2022-08-10] MEDS ORDERED: MAGNESIUM SULFATE IN WATER 2 GM/50 ML IVPB IVPB ONE (09:35)
[2022-08-10 09:36] LABS: CREATININE 0.5 mg/dL (0.55-1.3); INR 1.13 (0.83-1.09); PHOSPHOROUS 3.2 mg/dL (2.5-4.9); PROTHROMBIN TIME (PATIENT) 13.1 SEC (9.7-13.0)
[2022-08-10 09:37] LABS: BILIRUBIN,TOTAL 0.6 mg/dL (0.2-1); TOT PROT 7.3 g/dl (6.4-8.2)
[2022-08-10 09:39] LABS: ACTIVATED PTT 32.4 SECONDS (25.2-36.5)
[2022-08-10 09:41] LABS: BASO % 0.3 % (0-2.0); EOS % 0.2 % (0-4.5); HEMATOCRIT 32.1 % (32.4-45.2); HEMOGLOBIN 10.7 GM/dL (10.7-15.3); LYMPH % 19.9 % (8-40); MCH 26.1 pg (25.7-33.7); MCHC 33.4 g/dl (32.0-36.0); MEAN CELL VOLUME 78.2 fl (80-96); MEAN PLT VOLUME 8.1 fl (7.5-11.1); MONO % 11.2 % (3.8-10.2); N-TERMINAL BNP 529.4 pg/ml (5-125); NEUT % 68.4 % (42.8-82.8); PLATELET COUNT 266 10^3/uL (134-434); RBC 4.11 M/mm3 (3.60-5.2); WHITE BLOOD COUNT 8.9 K/mm3 (4.0-10.0)
[2022-08-10] MEDS ORDERED: SODIUM CHLORIDE 500 ML IV STA (10:59)
[2022-08-10] MEDS: LACTATED RINGERS SOLUTION 1000 ML INFUS.BAG IV ONE ×2 (11:59→12:22)
[2022-08-10] MEDS ORDERED: DEXTROSE 50%-WATER - 25 GM/50 ML VIAL IVPUSH ONE (12:00)
[2022-08-10] MEDS ORDERED: ASPIRIN 81 MG CHEWABLE TABLETS PO ONE (12:05)
[2022-08-10] MEDS ORDERED: ASPIRIN 325 MG TABLET ONE (12:26)
[2022-08-10] MEDS ORDERED: DEXTROSE 50%-WATER 25 GM/50 ML DISP.SYRIN ONE (12:26)
[2022-08-10] MEDS ORDERED: HEPARIN INFUSION - 25,000 UNITS/500 ML INFUS.BAG IVPB SCH (13:00)
[2022-08-10] MEDS ORDERED: HEPARIN INFUSION - 25,000 UNITS/500 ML INFUS.BAG IVPB ONE (13:40)
[2022-08-10] MEDS ORDERED: propRANOLol HCL 10 MG TABLET ONE (13:45)
[2022-08-10] MEDS: propRANOLol HCL 10 MG TABLET PO SCH ×2 (13:48→22:16)
[2022-08-10] MEDS: METHIMAZOLE 10 MG TABLET PO SCH ×2 (17:08→21:53)
[2022-08-10 17:52] LABS: RETICULOCYTES 1.94 % (0.5-1.5)
[2022-08-10] MEDS ORDERED: HEPARIN NA (PORCINE) 5,000 UNITS/ML 1ML VIAL IVPUSH PRN ×2 (23:00)
[2022-08-11] MEDS: METHIMAZOLE 10 MG TABLET PO SCH ×3 (06:14→21:37)
[2022-08-11] MEDS: propRANOLol HCL 10 MG TABLET PO SCH ×3 (06:15→21:37)
[2022-08-11 07:07] LABS: BASO % 0.7 % (0-2.0); EOS % 1.5 % (0-4.5); HEMATOCRIT 28.2 % (32.4-45.2); HEMOGLOBIN 9.2 GM/dL (10.7-15.3); LYMPH % 55.6 % (8-40); MCH 25.5 pg (25.7-33.7); MCHC 32.7 g/dl (32.0-36.0); MEAN PLT VOLUME 8.5 fl (7.5-11.1); MONO % 12.2 % (3.8-10.2); PLATELET COUNT 208 10^3/uL (134-434); RBC 3.62 M/mm3 (3.60-5.2); RDW 14.2 % (11.6-15.6); WHITE BLOOD COUNT 5.9 K/mm3 (4.0-10.0)
[2022-08-11 07:10] LABS: ALBUMIN 2.7 g/dl (3.4-5.0); BLOOD UREA NITROGEN 11.4 mg/dL (7-18); MAGNESIUM 1.5 mg/dL (1.8-2.4)
[2022-08-11 07:13] LABS: CREATININE 0.5 mg/dL (0.55-1.3); PHOSPHOROUS 4.5 mg/dL (2.5-4.9)
[2022-08-11 07:14] LABS: BILIRUBIN,TOTAL 0.5 mg/dL (0.2-1); TOT PROT 6.2 g/dl (6.4-8.2)
[2022-08-11] MEDS ORDERED: MAGNESIUM 2GM/50ML STERILE WATER IVPB IVPB ONE (08:30)
[2022-08-11 09:13] LABS: PH,URINE 5.5 (5.0-8.0); URINE APPEARANCE CLEAR; URINE BILIRUBIN NEGATIVE (NEGATIVE); URINE COLOR YELLOW; URINE GLUCOSE (UA) NEGATIVE (NEGATIVE); URINE KETONE NEGATIVE (NEGATIVE); URINE LEUK ESTERASE NEGATIVE (NEGATIVE); URINE NITRITE NEGATIVE (NEGATIVE); URINE PROTEIN NEGATIVE (NEGATIVE); URINE UROBILINOGEN 0.2 mg/dL (0.2-1.0)
[2022-08-11 09:31] LABS: COCAINE, UR POSITIVE (NEGATIVE); METHADONE, UR NEGATIVE (NEGATIVE); OPIATES, URI NEGATIVE (NEGATIVE); PHENCYCLIDINE,URINE NEGATIVE (NEGATIVE); URINE AMPHETAMINES NEGATIVE (NEGATIVE); URINE BARBITURATES NEGATIVE (NEGATIVE); URINE BENZODIAZEPINES NEGATIVE (NEGATIVE)
[2022-08-11] MEDS: ASPIRIN 81 MG CHEWABLE TABLETS PO SCH (09:45)
[2022-08-11] MEDS: NICOTINE 14 MG/24 HOURS TOPICAL PATCH TD SCH (09:45)
[2022-08-11] MEDS: HEPARIN NA (PORCINE) 5,000 UNITS/ML 1ML VIAL SQ SCH ×2 (13:53→21:37)
[2022-08-11] MEDS ORDERED: guaiFENesin 200 MG/10 ML 10 ML UNIT-DOSE CUPS PO ONE (21:18)
[2022-08-11] MEDS: BENZOCAINE/MENTHOL 1 EACH LOZENGE MM PRN (21:56)
[2022-08-12] MEDS: guaiFENesin 200 MG/10 ML 10 ML UNIT-DOSE CUPS PO PRN ×4 (02:05→19:35)
[2022-08-12] MEDS: BENZOCAINE/MENTHOL 1 EACH LOZENGE MM PRN (06:45)
[2022-08-12] MEDS: propRANOLol HCL 10 MG TABLET PO SCH ×3 (06:49→21:00)
[2022-08-12] MEDS: METHIMAZOLE 10 MG TABLET PO SCH ×3 (06:49→21:01)
[2022-08-12] MEDS: HEPARIN NA (PORCINE) 5,000 UNITS/ML 1ML VIAL SQ SCH ×3 (06:49→21:00)
[2022-08-12 07:36] LABS: BASO % 0.4 % (0-2.0); EOS % 1.6 % (0-4.5); HEMATOCRIT 28.7 % (32.4-45.2); HEMOGLOBIN 9.7 GM/dL (10.7-15.3); LYMPH % 45.1 % (8-40); MCH 26.3 pg (25.7-33.7); MEAN CELL VOLUME 77.5 fl (80-96); MEAN PLT VOLUME 8.5 fl (7.5-11.1); MONO % 14.5 % (3.8-10.2); NEUT % 38.4 % (42.8-82.8); PLATELET COUNT 221 10^3/uL (134-434); RDW 13.5 % (11.6-15.6); WHITE BLOOD COUNT 5.3 K/mm3 (4.0-10.0)
[2022-08-12 08:29] LABS: ALBUMIN 2.9 g/dl (3.4-5.0); BILIRUBIN,TOTAL 0.5 mg/dL (0.2-1); BLOOD UREA NITROGEN 11.8 mg/dL (7-18); CALCIUM 9.3 mg/dL (8.5-10.1); CREATININE 0.5 mg/dL (0.55-1.3); MAGNESIUM 1.6 mg/dL (1.8-2.4); PHOSPHOROUS 4.2 mg/dL (2.5-4.9); TOT PROT 6.5 g/dl (6.4-8.2)
[2022-08-12] MEDS: NICOTINE 14 MG/24 HOURS TOPICAL PATCH TD SCH (09:02)
[2022-08-12] MEDS: ASPIRIN 81 MG CHEWABLE TABLETS PO SCH (09:03)
[2022-08-12] MEDS ORDERED: METHIMAZOLE 10 MG TABLET PO SCH (10:00)
[2022-08-12 11:34] VITALS: RESP 18
[2022-08-13] MEDS: guaiFENesin 200 MG/10 ML 10 ML UNIT-DOSE CUPS PO PRN ×3 (05:07→15:48)
[2022-08-13] MEDS: HEPARIN NA (PORCINE) 5,000 UNITS/ML 1ML VIAL SQ SCH ×2 (05:08→13:36)
[2022-08-13] MEDS: propRANOLol HCL 10 MG TABLET PO SCH ×2 (05:09→13:35)
[2022-08-13] MEDS: METHIMAZOLE 10 MG TABLET PO SCH ×2 (05:09→13:36)
[2022-08-13 08:20] LABS: BASO % 0.4 % (0-2.0); EOS % 3.1 % (0-4.5); HEMOGLOBIN 10.4 GM/dL (10.7-15.3); LYMPH % 31.4 % (8-40); MCH 26.2 pg (25.7-33.7); MCHC 33.7 g/dl (32.0-36.0); MEAN CELL VOLUME 77.8 fl (80-96); MEAN PLT VOLUME 8.4 fl (7.5-11.1); MONO % 13.5 % (3.8-10.2); NEUT % 51.6 % (42.8-82.8); PLATELET COUNT 245 10^3/uL (134-434); RBC 3.99 M/mm3 (3.60-5.2); RDW 13.4 % (11.6-15.6); WHITE BLOOD COUNT 4.8 K/mm3 (4.0-10.0)
[2022-08-13 08:48] VITALS: PULSE 93; TEMP 99
[2022-08-13 09:02] LABS: BLOOD UREA NITROGEN 12.1 mg/dL (7-18); CALCIUM 9.2 mg/dL (8.5-10.1)
[2022-08-13 09:03] LABS: MAGNESIUM 1.3 mg/dL (1.8-2.4)
[2022-08-13 09:05] LABS: CREATININE 0.6 mg/dL (0.55-1.3); PHOSPHOROUS 4.2 mg/dL (2.5-4.9)
[2022-08-13 09:07] LABS: BILIRUBIN,TOTAL 0.6 mg/dL (0.2-1); TOT PROT 6.9 g/dl (6.4-8.2)
[2022-08-13] MEDS: NICOTINE 14 MG/24 HOURS TOPICAL PATCH TD SCH (09:56)
[2022-08-13] MEDS: ASPIRIN 81 MG CHEWABLE TABLETS PO SCH (09:56)
[2022-08-13] MEDS ORDERED: MAGNESIUM SULF 50% (8.12 MEQ/2 ML-1 GM VIAL) IVPB ONE (14:19)
[2022-08-13 18:12] VITALS: BP 130/80
[2022-08-13] MEDS ORDERED: ATORVASTATIN CA 40 MG TABLET (FP) PO SCH (22:00)
== END 2022-08-13 18:00 | disposition home or self-care (01) | DRG 424 ==
LOC: JER 07:52 → JERBED 11:19 → J4W 15:33
PROVIDERS: ADMIT Internal Medicine; ATTEND Internal Medicine
DX: E05.90 Thyrotoxicosis, unspecified without thyrotoxic crisis or storm (principal); I24.8 Other forms of acute ischemic heart disease; F17.210 Nicotine dependence, cigarettes, uncomplicated; E83.42 Hypomagnesemia; D64.9 Anemia, unspecified; E03.9 Hypothyroidism, unspecified; E86.0 Dehydration; I44.1 Atrioventricular block, second degree; F31.9 Bipolar disorder, unspecified; G47.30 Sleep apnea, unspecified; I50.32 Chronic diastolic (congestive) heart failure; I69.351 Hemiplegia and hemiparesis following cerebral infarction affecting right dominant side; Z59.00 Homelessness unspecified
CPT/HCPCS: 0241U-QW; 36415; 70450-TC; 70486-TC; 71045-TC-FY; 71275-TC; 72125-TC; 80053; 80061; 80307; 81003; 82728; 82962; 83540; 83550; 83735; 83880; 84100; 84439; 84443; 84466; 84481; 84484; 84702; 85025; 85045; 85610; 85730; 86376; 86850; 86900; 86901; 93005; 93010; 93306-TC; 99285-25; J1644; Q9967